=== PATIENT | male | born 1985 | race Caucasian/White ===

== ENCOUNTER → 2019-12-31 09:28 | Outpatient (BNVA) | payer MEDICAID, SELFPAY | PROVIDERS: PCP Internal Medicine; Referring Provider Internal Medicine; Visit Provider Physician Assistant | DX: R12 Heartburn (principal); R11.2 Nausea with vomiting, unspecified; F17.210 Nicotine dependence, cigarettes, uncomplicated | CPT/HCPCS: 99212 ==

== ENCOUNTER 2020-01-08 16:30 | Emergency (ER) | payer MEDICAID, SELFPAY ==
[2020-01-08 16:45] VITALS: BP 150/85; PULSE 72; RESP 16; TEMP 37.2; O2SAT 97; BMI 33.8
--- NOTE | 2020-01-08 17:23 | ED_ITS ---
HPI - General Adult General Chief complaint: General Medical Stated complaint: CONGESTION Time Seen by Provider: 01/08/20 17:23 History of Present Illness HPI narrative: Patient complains of right ear pain, congestion, mild cough, fever earlier in the day which he took Motrin and does not feel feverish now He did go to an urgent care yesterday for same symptoms and started amoxicillin but ear pain is not controlled with Motrin and wants to be rechecked There is no cough no sore throat no shortness of breath no weakness no headache no toothache Related Data Home Medications Medication Instructions Recorded Confirmed omeprazole 20 mg capsule,delayed 20 mg PO BID 12/31/19 12/31/19 release polyethylene glycol 3350 17 17 g PO DAILY 12/31/19 12/31/19 gram/dose oral powder Previous Rx's Medication Instructions Recorded famotidine 40 mg tablet 40 mg PO DAILY #30 tab 12/31/19 pantoprazole 20 mg tablet,delayed 20 mg PO QAM #30 tab 12/31/19 release amoxicillin-pot clavulanate 1 tab PO Q12H 10 Days #20 tab 01/08/20 [Augmentin] oxycodone-acetaminophen [Percocet] 1 - 2 tab PO Q6H PRN #14 tab 01/08/20 Allergies Allergy/AdvReac Type Severity Reaction Status Date / Time olive extract [OLIVE] Allergy Intermediate THROAT Unverified 11/08/19 15:49 SWELLING Penicillins [PENICILLINS] Allergy Intermediate RASH Unverified 11/08/19 15:49 Review of Systems Review of Systems: Positive for ear pain fever runny nose and mild cough There is no headache no stiff neck no toothache no chest pain no shortness of breath no abdominal pain no nausea vomiting diarrhea no leg swelling no rash, no weakness PMFSH Past Medical History Source: nursing notes reviewed Medical History (Updated 01/08/20 @ 17:37 by ENMANUEL Mcknight) Heartburn Overweight Family History Family History (Updated 12/31/19 @ 08:12 by Tiffany Mcpherson PA-C) Father No problems noted. Mother No problems noted. Social History Social History (Updated 12/31/19 @ 08:09 by Tiffany Mcpherson PA-C) Household Members: Children Smoking Status: Current every day smoker Tobacco Type: Cigarette Use of substances other than those prescribed or required for medical reasons: No Advance Directives: No Advance Directives Information Provided: Yes Current occupational status: employed Current occupation: [employer]- Physical Exam Vital Signs: Vital Signs: Last Vital Signs Temp 99 F 01/08/20 16:45 Pulse 72 01/08/20 16:45 Resp 16 01/08/20 16:45 BP 150/85 H 01/08/20 16:45 Pulse Ox 97 01/08/20 16:45 Body Mass Index 33.8 Patient is A&O x3 no acute distress The left ear is normal tympanic membrane, normal canal The right ear has a somewhat obscured tympanic membrane which is red, the canal is open there is no mastoid redness or tenderness, there is no material in the canal Pharynx is clear no redness no exudate no swelling, mucous membranes are moist, voice is normal, uvula is midline There is no dental tenderness or swelling Neck is supple without lymphadenopathy The chest is clear with full equal symmetrical breath sounds the heart rate and rhythm are regular with no murmur The abdomen soft nontender the extremities no rash the neuro no focal deficit, his gait is normal his balance is normal his speech is normal, no facial asymmetry Course Course Course Narrative: Patient has taken a couple of doses of amoxicillin but as he developed a fever today I switched antibiotics to Augmentin for broader coverage COVID testing was done Patient was discharged home and advised to return in 2-3 days if not improved Discharge Plan Discharge Clinical Impression: Otitis media Qualifiers: Otitis media type: unspecified Laterality: right Qualified Code(s): H66.91 - Otitis media, unspecified, right ear Patient Disposition: Home, Self-Care Additional Instructions: We are using a stronger antibiotic as you have not improved on amoxicillin We did a COVID test and the results will be back in 2-3 days and we will call you Return to the ER any time for any worse condition or any concern Follow with primary care physician in 3 days if not better, or return to ER for recheck if not improved [id number] ear drops pain relief drops may be helpful Prescriptions: New amoxicillin-pot clavulanate [Augmentin] 875-125 mg tablet 1 tab PO Q12H 10 Days Qty: 20 RF: 0 oxycodone-acetaminophen [Percocet] 5-325 mg tablet 1 - 2 tab PO Q6H PRN (Reason: pain) Qty: 14 RF: 0 No Action omeprazole 20 mg capsule,delayed release(DR/EC) 20 mg PO BID RF: 0 polyethylene glycol 3350 [Miralax] 17 gram/dose powder 17 g PO DAILY RF: 0 pantoprazole 20 mg tablet,delayed release (DR/EC) 20 mg PO QAM Qty: 30 RF: 6 famotidine 40 mg tablet 40 mg PO DAILY Qty: 30 RF: 5 Stand Alone Forms: Work/School Release Interventions: ED Discharge Assessment Last Done: 01/08/20 18:06 Discharge Date/Time: 01/08/20 18:13
[2020-01-08] MEDS: Amoxicillin/Potassium Clav 875 MG TABLET PO (17:37)
[2020-01-08] MEDS: Ibuprofen 800 MG TABLET PO (17:37)
--- NOTE | 2020-01-08 17:39 | PC.NURSE ---
PT IS STATES HE HAS OUT GROWN PENICILLIN ALLERGY THAT HAPPENED A BABY HE HAS BEEN TAKINF AMOXICILLIN WITH OUT ISSUES.
== END 2020-01-08 18:13 | disposition home or self-care (01) ==
PROVIDERS: Physician Assistant Medical; Emergency Provider Emergency Medicine; PCP Internal Medicine
DX: H66.91 Otitis media, unspecified, right ear (principal); H92.01 Otalgia, right ear; Z79.899 Other long term (current) drug therapy; F17.210 Nicotine dependence, cigarettes, uncomplicated; Z71.6 Tobacco abuse counseling; Z20.828 Contact with and (suspected) exposure to other viral communicable diseases
CPT/HCPCS: 99283; 99284; U0003

== ENCOUNTER 2020-01-23 20:43 | Emergency (ER) | payer MEDICAID, SELFPAY ==
[2020-01-23 21:06] VITALS: BP 131/77; PULSE 96; RESP 16; TEMP 37.1; O2SAT 97; BMI 32.9
[2020-01-23 22:00] VITALS: BP 121/66; PULSE 71; RESP 16; TEMP 37.4; O2SAT 97
[2020-01-23] MEDS: Acetaminophen 325 MG TABLET 975 MG PO (22:41)
[2020-01-23] MEDS: Ibuprofen 400 MG TABLET PO (22:42)
--- NOTE | 2020-01-23 22:42 | ED.URI ---
HPI - URI/Sore Throat General Chief Complaint: Upper Respiratory Symptoms Stated Complaint: FLU LIKE SYMPTOMS Time Seen by Provider: 01/23/20 22:34 Source: patient Mode of arrival: ambulatory Limitations: no limitations History of Present Illness HPI Narrative: This is a 34-year-old male who presents with body aches, sore throat, dry cough , headache, and isolated episode of diarrhea today. 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 Otherwise, patient denies shortness of breath, chest pain / palpitations. Related Data Home Medications Medication Instructions Recorded Confirmed omeprazole 20 mg capsule,delayed 20 mg PO BID 12/31/19 12/31/19 release polyethylene glycol 3350 17 17 g PO DAILY 12/31/19 12/31/19 gram/dose oral powder Previous Rx's Medication Instructions Recorded famotidine 40 mg tablet 40 mg PO DAILY #30 tab 12/31/19 pantoprazole 20 mg tablet,delayed 20 mg PO QAM #30 tab 12/31/19 release amoxicillin-pot clavulanate 1 tab PO Q12H 10 Days #20 tab 01/08/20 [Augmentin] oxycodone-acetaminophen [Percocet] 1 - 2 tab PO Q6H PRN #14 tab 01/08/20 Allergies Allergy/AdvReac Type Severity Reaction Status Date / Time olive extract [OLIVE] Allergy Intermediate THROAT Verified 01/23/20 21:09 SWELLING Penicillins [PENICILLINS] Allergy Intermediate RASH Verified 01/23/20 21:09 Review of Systems Review of Systems: pertinent positives and negatives as stated in HPI 10 point review of systems is otherwise negative. [facility] Past Medical History Source: nursing notes reviewed Medical History Heartburn Overweight Family History Family History Father No problems noted. Mother No problems noted. Social History Social History Household Members: Children Alcohol intake: unknown Smoking Status: Current every day smoker Tobacco Type: Cigarette Smoked in Last 30 Days: No Use of substances other than those prescribed or required for medical reasons: Unknown Advance Directives: No Advance Directives Information Provided: No Current occupational status: employed Current occupation: [employer]- Physical Exam Vital Signs: Vital Signs: Last Vital Signs Temp 99.4 F 01/23/20 22:00 Pulse 71 01/23/20 22:00 Resp 16 01/23/20 22:00 BP 121/66 01/23/20 22:00 Pulse Ox 97 01/23/20 22:00 Body Mass Index 32.9 VITAL SIGNS: Reviewed. GENERAL: Well developed, well nourished, in no acute distress. HEAD: Normocephalic/atraumatic, EYES: PERRLA, EOMI intact without pain, no nystagmus/pallor/icterus noted EARS: Ext canals without abnormality, TMs non-bulging and non-erythematous NOSE: Nares patent bilateral OROPHARYNX: no oral lesions noted, posterior pharynx clear and non-erythematous without noted tonsillar enlargement/erythema/exudates NECK: Supple, no adenopathy LUNGS: Normal breath sounds. No adventitious sounds or accessory muscle use. SpO2<97> CARDIOVASCULAR: Regular rate and rhythm without noted murmurs, no JVD or lower extremity edema. ABDOMEN: Soft, non-tender, non-distended with bowel sounds. No rigidity. No guarding. No palpable masses or hernias noted MUSCULOSKELETAL: No tenderness, deformities, or effusions noted on gross inspection. EXTREMITIES: No cyanosis, clubbing or edema. SKIN: Inspection of the skin reveals no rashes, ulcerations, jaundice, pallor, or petechiae. NEUROLOGIC: Alert and oriented x 4. Strength and sensation to light touch were grossly intact x 4. Course Course Course Narrative: This is a 34-year-old male with history and clinical presentation consistent with positive sick contacts, no flu vaccine, and COVID-19 exposure at his place of employment. Patient will be swabbed for COVID-19 today and was given strict instructions for self quarantine there is no evidence of hypoxia, tachypnea, tachycardia. Discharge Plan Discharge Clinical Impression: Exposure to COVID-19 virus, Viral syndrome Patient Disposition: Home, Self-Care Instructions: Viral Syndrome (ED), COVID-19 (Coronavirus Disease 2019) (ED) Additional Instructions: 1. increase fluid hydration especially with water. 2. Tylenol 1000 mg, orally, every 6 hours as needed for temperatures greater than 100.4 or body aches. Do not exceed 4000 mg within 24 hours. 3. ibuprofen 400 mg, orally with milk or food, every 6 hours as needed for temperatures greater than 100.4 or body aches. 4. your required by the [facility] to self quarantine until you have received the results of your COVID-19 testing that was completed here today. Please follow all [facility] guidelines and recommendations on the website. The patient and/or family acknowledge understanding of results (as applicable), diagnosis, treatment plan, need for follow up, and symptoms that should prompt a return to the emergency room. Prescriptions: No Action amoxicillin-pot clavulanate [Augmentin] 875-125 mg tablet 1 tab PO Q12H 10 Days Qty: 20 RF: 0 oxycodone-acetaminophen [Percocet] 5-325 mg tablet 1 - 2 tab PO Q6H PRN (Reason: pain) Qty: 14 RF: 0 omeprazole 20 mg capsule,delayed release(DR/EC) 20 mg PO BID RF: 0 polyethylene glycol 3350 [Miralax] 17 gram/dose powder 17 g PO DAILY RF: 0 pantoprazole 20 mg tablet,delayed release (DR/EC) 20 mg PO QAM Qty: 30 RF: 6 famotidine 40 mg tablet 40 mg PO DAILY Qty: 30 RF: 5 Referrals: Physician,Unknown [Primary Care Provider] - 2 days
== END 2020-01-23 22:53 | disposition home or self-care (01) ==
PROVIDERS: Emergency Provider Student in an Organized Health Care Education/Training Program
DX: B34.9 Viral infection, unspecified (principal); R05 Cough; M79.10 Myalgia, unspecified site; F17.210 Nicotine dependence, cigarettes, uncomplicated; Z20.828 Contact with and (suspected) exposure to other viral communicable diseases; Z79.899 Other long term (current) drug therapy; Z71.6 Tobacco abuse counseling
CPT/HCPCS: 99283; 99284; U0003

== ENCOUNTER 2020-03-06 08:15 | Outpatient (REF) | payer MEDICAID, SELFPAY ==
--- NOTE | 2020-03-06 08:17 | FL_ITS ---
EXAMINATION: FL BARIUM SWALLOW CLINICAL INFORMATION: Heartburn COMPARISON: None TECHNIQUE: Barium swallow examination is performed using fluoroscopic evaluation in addition to multiple fluoroscopic spot views. The patient is imaged both upright and prone and using both thick and thin sulfate along with effervescent granules. Fluoroscopy time: 1.3 minutes DAP: 7.837 Gycm2 Images: 6 FINDINGS: There is normal apposition of the focal cords while saying E. There is normal elevation of the soft palate while saying candy. Patient swallowed thin and thick barium and half-inch diameter barium tablet without difficulty. No nasopharyngeal reflux or tracheal aspiration identified. No cricopharyngeal hypertrophy or Zenker's diverticulum identified. There is normal esophageal motility without evidence of stricture or ulceration. No mucosal abnormalities appreciated. A nonobstructive Schatzki's ring is present. No gastroesophageal reflux was elicited during the study including with water siphon test. FL/FL barium swallow IMPRESSION: 1. No significant esophageal abnormality appreciated. 2. No gastroesophageal reflux elicited during the study.
== END 2020-03-06 08:16 | disposition home or self-care (01) ==
LOC: HO.XRAY 08:15
PROVIDERS: Visit Provider Physician Assistant
DX: R12 Heartburn (principal)
CPT/HCPCS: 74220

== ENCOUNTER → 2021-03-03 08:43 | Outpatient (BNVA) | payer MEDICAID, SELFPAY | PROVIDERS: PCP Nurse Practitioner Primary Care; Visit Provider Urology | DX: Z30.09 Encounter for other general counseling and advice on contraception (principal); F41.8 Other specified anxiety disorders | CPT/HCPCS: 99202 ==

== ENCOUNTER 2021-04-08 10:27 | Emergency (ER) | payer OTHER, MEDICAID, SELFPAY ==
--- NOTE | ~2021-04-08 | XR_ITS ---
EXAMINATION: LEFT FOOT AND LEFT CALCANEUS CLINICAL INFORMATION: Pain when dorsiflexing foot. Injured at work. COMPARISON: None TECHNIQUE: 2 views of the left calcaneus and 3 views of the left foot FINDINGS: There is no evidence of acute fracture or dislocation of the left foot or calcaneus. Boehler's angle does not show flattening. Joint spaces are maintained. There is an Achilles calcaneal spur present. 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 XR/XR calcaneus LT min 2V IMPRESSION: No evidence of acute fracture or dislocation of the left foot or calcaneus.
--- NOTE | ~2021-04-08 | XR_ITS ---
EXAMINATION: LEFT FOOT AND LEFT CALCANEUS CLINICAL INFORMATION: Pain when dorsiflexing foot. Injured at work. COMPARISON: None TECHNIQUE: 2 views of the left calcaneus and 3 views of the left foot FINDINGS: There is no evidence of acute fracture or dislocation of the left foot or calcaneus. Boehler's angle does not show flattening. Joint spaces are maintained. There is an Achilles calcaneal spur present. 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 XR/XR foot LT 2V IMPRESSION: No evidence of acute fracture or dislocation of the left foot or calcaneus.
[2021-04-08 10:38] VITALS: BP 118/74; PULSE 80; RESP 16; TEMP 36.6; O2SAT 97; BMI 34.8
[2021-04-08] MEDS: Acetaminophen 325 MG TABLET 975 MG PO (11:19)
--- NOTE | 2021-04-08 11:48 | ED.LOWEXIN ---
HPI - Extremity Injury (Lower) General Chief Complaint: Extremity Injury, Lower Stated Complaint: ankle injury - work related Time Seen by Provider: 04/08/21 10:42 Source: patient Mode of arrival: wheelchair Limitations: no limitations History of Present Illness HPI Narrative: 36-year-old male who slipped on stairs at work and twisted his left ankle this morning. He can bear weight, but he has a stabbing sensation on his left heel. No numbness or tingling, no radiation of pain Related Data Home Medications Medication Instructions Recorded Confirmed omeprazole 20 mg capsule,delayed 20 mg PO BID 12/31/19 12/31/19 release polyethylene glycol 3350 17 17 g PO DAILY 12/31/19 12/31/19 gram/dose oral powder (Miralax) cetirizine 10 mg tablet 10 mg PO DAILY 03/03/21 nicotine 21 mg/24 hr daily 1 patch TOPICAL DAILY 03/03/21 transdermal patch Previous Rx's Medication Instructions Recorded famotidine 40 mg tablet 40 mg PO DAILY #30 tab 12/31/19 pantoprazole 20 mg tablet,delayed 20 mg PO QAM #30 tab 12/31/19 release amoxicillin 875 mg-potassium 1 tab PO Q12H 10 Days #20 tab 01/08/20 clavulanate 125 mg tablet (Augmentin) oxycodone-acetaminophen 5 mg-325 1 - 2 tab PO Q6H PRN #14 tab 01/08/20 mg tablet (Percocet) acetaminophen 300 mg-codeine 30 mg 1 tab PO Q8H #7 tab 03/03/21 tablet diazepam 2 mg tablet 2 mg PO BID PRN 7 Days #2 tab 03/03/21 Allergies Allergy/AdvReac Type Severity Reaction Status Date / Time olive extract [OLIVE] Allergy Intermediate THROAT Verified 03/03/21 08:47 SWELLING Penicillins [PENICILLINS] Allergy Intermediate RASH Verified 03/03/21 08:47 Review of Systems Constitutional: Constitutional: Denies body ache(s), Denies chills, Denies fatigue, Denies fever(s), Denies headache(s), Denies malaise and Denies weakness Eyes: Eyes: Denies diplopia ENT: Denies vertigo, Denies dizziness, Denies otalgia, Denies headache(s), Denies mouth pain, Denies post nasal drip, Denies sinus pain, Denies sinus pressure, Denies sore throat and Denies throat swelling Cardiovascular: Cardiovascular: Denies chest pain, Denies syncope, Denies leg edema, Denies lightheadedness, Denies Loss of Consciousness, Denies palpitations and Denies dyspnea Respiratory: Respiratory: Denies chest congestion, Denies cough and Denies dyspnea Gastrointestinal: Gastrointestinal: Denies abdominal pain, Denies hematochezia, Denies constipation, Denies diarrhea and Denies vomiting Musculoskeletal: Comments: Left heel pain Neurologic: Denies confusion, Denies vertigo, Denies dizziness, Denies syncope, Denies headache(s) and Denies weakness Psychiatric: Psychiatric: Denies anxiety, Denies confusion and Denies depression Endocrine: Endocrine: Denies fatigue and Denies palpitations Allergic/Immunologic: Allergic/Immunologic: Denies throat swelling PMFSH Past Medical History Medical History Heartburn Overweight Family History Family History Father No problems noted. Mother No problems noted. Social History Social History Household Members: Children Alcohol intake: unknown Advance Directives: No Advance Directives Information Provided: No Current occupational status: employed Current occupation: [employer]- Physical Exam Vital Signs: Vital Signs: Last Vital Signs Temp 97.8 F 04/08/21 10:38 Pulse 80 04/08/21 10:38 Resp 16 04/08/21 10:38 BP 118/74 04/08/21 10:38 Pulse Ox 97 04/08/21 10:38 BMI result Body Mass Index 34.8 Const: General: No confusion Nutritional Appearance: well nourished Orientation/consciousness: No confusion Limitations: no limitations HENMT: Head: Yes normal to inspection, Yes normocephalic and Yes atraumatic Ears: hearing grossly normal bilaterally, external ears normal, TM's normal bilaterally and EAC's normal General nose exam: Normal external nose present Face and sinus: Yes normal facial exam and Yes sinuses nontender Mouth: Normal oral and palatal mucosa present Throat: Yes posterior oropharynx normal Eyes: Conjunctivae: conjunctivae normal Pupils: Equal, round and reactive pupils present EOM: EOMs intact bilaterally Neck: Neck: Yes full ROM, Yes no lymphadenopathy and Yes supple Resp: Effort & Inspection: normal respiratory effort and able to speak in complete sentences Auscultation: clear to auscultation bilaterally, no crackles, no rales, no rhonchi and no wheezes Cardio: Rate: regular rate Rhythm: regular rhythm Heart sounds: S1 normal heart sound present and S2 normal heart sound present GI: Inspection: Yes normal to inspection Palpation (GI): Soft to palpation, nontender, no guarding and not rigid Percussion: Yes normal to percussion Auscultation: normal bowel sounds Skin: General skin exam: no rashes or lesions noted Neuro: General: No confusion Cranial nerves: Yes Equal, round and reactive pupils present Extrem: Left lower extremity: normal to inspection, full ROM, normal capillary refill, ankle Details: normal to inspection and normal ROM; Negative for no tenderness, no swelling and edema and foot Details: normal capillary refill, normal to inspection and tenderness Location: of the calcaneus Details: with squeeze; No no cyanosis and no edema Psych: Appearance: grossly normal Affect: normal affect Attitude: cooperative Thought process: Normal thought process present Course Course Course Narrative: 36-year-old male slipped and injured left heel at work. 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 X-ray is negative. Gait walking boot and crutches. Counseled patient to rest, ice, elevate, and wear boot as needed. Counseled if patient is not better in 1 week, to return or see PCP, and he will be referred to orthopedics then. 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 Patient verbalized agreement and understanding plan. FINDINGS: There is no evidence of acute fracture or dislocation of the left foot or calcaneus. Boehler's angle does not show flattening. Joint spaces are maintained. There is an Achilles calcaneal spur present. 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 XR/XR foot LT 2V IMPRESSION: No evidence of acute fracture or dislocation of the left foot or calcaneus.? Discharge Plan Discharge Clinical Impression: Pain of left heel Patient Disposition: Home, Self-Care Instructions: Crutch Instructions (ED), R.I.C.E. Treatment (ED), Walking Boot (ED) Additional Instructions: Please alternate Tylenol and ibuprofen for pain. Take 1 or the other every 4 hours. For example, at midnight take 1000 mg of Tylenol, then at 4:00 a.m. take 800 mg ibuprofen, at 8:00 a.m. take 1000 mg of Tylenol, at noon take 800 mg of ibuprofen, at 4:00 p.m. take 1000 mg of Tylenol, at 8:00 p.m. take 800 mg of ibuprofen. Do not exceed 3000 mg of Tylenol in 24 hours. This method is proven to be as effective as an opioid for pain control. Please use your walking boot and crutches. Please bear weight as you can tolerate. Please return to be seen in 1 week if your pain is not resolving and at that point we will refer you to orthopedics. You do not have a fracture by x-ray here today. Prescriptions: No Action amoxicillin-pot clavulanate [Augmentin] 875-125 mg tablet 1 tab PO Q12H 10 Days Qty: 20 0RF oxycodone-acetaminophen [Percocet] 5-325 mg tablet 1 - 2 tab PO Q6H PRN (Reason: pain) Qty: 14 0RF omeprazole 20 mg capsule,delayed release(DR/EC) 20 mg PO BID 0RF polyethylene glycol 3350 [Miralax] 17 gram/dose powder 17 g PO DAILY 0RF pantoprazole 20 mg tablet,delayed release (DR/EC) 20 mg PO QAM Qty: 30 6RF famotidine 40 mg tablet 40 mg PO DAILY Qty: 30 5RF nicotine 21 mg/24 hr patch 24 hour 1 patch topical DAILY 0RF cetirizine 10 mg tablet 10 mg PO DAILY 0RF diazepam 2 mg tablet 2 mg PO BID PRN (Reason: anxiety) 7 Days Qty: 2 0RF Rx Instructions: Take medication after arrival at office acetaminophen-codeine 300-30 mg tablet 1 tab PO Q8H Qty: 7 0RF Stand Alone Forms: Work/School Release
== END 2021-04-08 12:41 | disposition home or self-care (01) ==
PROVIDERS: Emergency Provider Emergency Medicine; PCP Nurse Practitioner Primary Care
DX: Z04.2 Encounter for examination and observation following work accident (principal); M79.672 Pain in left foot
CPT/HCPCS: 73620; 73650; 99283; 99284

== ENCOUNTER → 2021-06-10 10:53 | Outpatient (BNVA) | payer MEDICAID, SELFPAY | PROVIDERS: PCP Nurse Practitioner Primary Care; Visit Provider Urology | DX: Z30.2 Encounter for sterilization (principal); F41.8 Other specified anxiety disorders | CPT/HCPCS: 55250 ==

== ENCOUNTER 2023-06-21 11:47 | Outpatient (REF) | payer MEDICAID, SELFPAY ==
[2023-06-21 13:11] LABS: MANUAL DIFF FLAG NO
[2023-06-21 13:32] LABS: Basophils Absolute Auto 0.1 X10*3/uL (0.0-0.2); Basophils Percent Auto 0.7 % (0-2); Eosinophils Absolute Auto 0.2 X10*3/uL (0.0-0.4); Hematocrit 43.8 % (42.0-52.0); Hemoglobin 14.8 g/dl (14.0-18.0); Imm Gran Abs Auto 0.02 X10*3/uL (0.00-0.03); Imm Gran Pct Auto 0.3 % (0.0-0.4); Lymphocytes Percent Auto 40.2 % (20-40); Mean Corpuscular HGB Conc 33.8 g/dl (31.0-36.0); Mean Corpuscular Hemoglobin 31.5 pg (27.0-33.0); Mean Corpuscular Volume 93.2 fL (80.0-98.0); Mean Platelet Volume 10.3 fL (9.4-12.4); Monocytes Absolute Auto 0.8 X10*3/uL (0.1-1.2); Monocytes Percent Auto 9.9 % (2-11); Neutrophils Absolute Auto 3.5 x10*3/uL (2.0-8.3); Neutrophils Percent Auto 45.9 % (45-73); Platelet Count 357 X10*3/uL (160-400); Red Cell Distribution Width 12.6 % (11.0-16.0); White Blood Count 7.6 X10*3/uL (4.8-10.8)
[2023-06-21 14:02] LABS: Alanine Aminotransferase 47 U/L (0-40); Albumin Level 4.3 g/dL (3.5-5.0); Alkaline Phosphatase 92 U/L (39-117); Anion Gap 11 (12-20); Aspartate Amino Transferase 50 U/L (5-37); Bilirubin Total 0.5 mg/dL (0.0-1.0); Blood Urea Nitrogen 16 mg/dL (9-16); Calcium 9.7 mg/dL (8.4-10.2); Carbon Dioxide 26 mmol/L (22-29); Chloride 107 mmol/L (96-108); Estimated Glomerular Filt Rate > 60; Glucose Random 95 mg/dL (60-115); Potassium 4.2 mmol/L (3.3-5.1); Sodium 140 mmol/L (135-145); Total Protein 7.8 g/dL (6.5-8.0)
[2023-06-21 14:10] LABS: TSH reflex Free T4 1.89 uIU/mL (0.32-4.0)
[2023-06-21 15:45] LABS: Estimated Average Glucose 120 mg/dL; Hemoglobin A1c % 5.8 % (<6.0)
[2023-06-25 14:13] LABS: Testosterone, Free 42.3 pg/mL (35.0-155.0); Testosterone, Total 149 ng/dL (250-1100)
== END 2023-06-21 11:48 | disposition home or self-care (01) ==
LOC: HO.HHCL 11:47
PROVIDERS: Visit Provider Nurse Practitioner Primary Care
DX: R63.5 Abnormal weight gain (principal); R91.8 Other nonspecific abnormal finding of lung field; Z87.891 Personal history of nicotine dependence
CPT/HCPCS: 36415; 80053; 83036; 84402; 84403; 84443; 85025

== ENCOUNTER 2023-06-30 08:01 | Outpatient (REF) | payer MEDICAID, SELFPAY ==
[2023-06-30 08:45] LABS: Cholesterol 173 mg/dL (<200); HDL Cholesterol 29 mg/dL (>40); LDL Cholesterol Calculated 100 mg/dL (<100); Triglycerides 221 mg/dL (<150)
[2023-07-01 15:43] LABS: Follicle Stimulating Hormone 5.6 mIU/mL (1.4-12.8); Lutenizing Hormone 4.4 mIU/mL (1.5-9.3)
[2023-07-05 12:09] LABS: Testosterone, Free 36.3 pg/mL (35.0-155.0); Testosterone, Total 153 ng/dL (250-1100)
== END 2023-06-30 08:02 | disposition home or self-care (01) ==
LOC: HO.LAB 08:01
PROVIDERS: Visit Provider Nurse Practitioner Primary Care
DX: Z13.220 Encounter for screening for lipoid disorders (principal); R79.89 Other specified abnormal findings of blood chemistry
CPT/HCPCS: 36415; 80061; 83001; 83002; 84402; 84403

== ENCOUNTER 2023-07-11 08:05 | Outpatient (REF) | payer MEDICAID, SELFPAY ==
[2023-07-11 09:51] LABS: Iron 120 mcg/dL (45-160); Percent Iron Saturation 40 % (15-50); Total Iron Binding Capacity 298 mcg/dL (228-428); Unsaturated Iron Binding 178 ug/dL
[2023-07-11 10:07] LABS: Ferritin 293 ng/mL (20-250)
[2023-07-11 10:35] LABS: Cortisol Random 12.5 ug/dL
[2023-07-12 14:54] LABS: Transferrin 269 mg/dL (188-341)
[2023-07-13 09:02] LABS: Lutenizing Hormone 4.3 mIU/mL (1.5-9.3); Prolactin 9.9 ng/mL (2.0-18.0); Sex Hormone Binding Globulin 10 nmol/L (10-50)
[2023-07-18 01:42] LABS: Estradiol Ultra Sensitive 21 pg/mL (< OR = 29)
[2023-07-22 10:39] LABS: Testosterone, Total 122 ng/dL (250-1100)
== END 2023-07-11 08:06 | disposition home or self-care (01) ==
LOC: HO.LAB 08:05
PROVIDERS: PCP Nurse Practitioner Primary Care; Visit Provider Nurse Practitioner Primary Care
DX: R79.89 Other specified abnormal findings of blood chemistry (principal)
CPT/HCPCS: 36415; 82533; 82670; 82728; 83001; 83002; 83540; 84146; 84270; 84402; 84403; 84466

== ENCOUNTER 2024-05-03 18:45 | Emergency (ER) | payer OTHER, SELFPAY ==
--- NOTE | ~2024-05-03 | XR_ITS ---
CLINICAL HISTORY: CP 2 views chest Comparison: CR - CHEST 1 VIEW [id number] - 09/04/15 11:26 EDT Findings: Cardiac and mediastinal contours are normal. Mild interstitial prominence with scattered peribronchial thickening. No focal consolidation. No effusion. No pneumothorax. No acute osseous finding. Impression: Mild interstitial prominence with scattered peribronchial thickening. No focal consolidation. This document has been electronically signed by: Eh Ibanez MD on 05/03/2024 20:13:33
--- NOTE | 2024-05-03 18:46 | ECG_ITS ---
Test Reason : CHEST PAIN Blood Pressure : */* mmHG Vent. Rate : 80 BPM Atrial Rate : 80 BPM P-R Int : 138 ms QRS Dur : 86 ms QT Int : 370 ms P-R-T Axes : 25 7 0 degrees QTcB Int : 426 ms Normal sinus rhythm Nonspecific T wave abnormality Abnormal ECG When compared with ECG of 29-Aug-2017 21:40, No significant change was found Referred By: Generic ED Physician Electronically Signed By: NORA DYKES
[2024-05-03 19:31] VITALS: BP 106/76; PULSE 86; RESP 18; TEMP 36.4; O2SAT 97; BMI 37.2
--- NOTE | 2024-05-03 19:31 | ED.CHESTPAIN ---
HPI - Chest Pain General Chief Complaint: Chest Pain Stated Complaint: CP Time Seen by Provider: 05/03/24 21:47 Source: patient Mode of arrival: ambulatory Limitations: no limitations History of Present Illness ED Provider: Dr. Codi James HPI narrative: Patient comes to the emergency room complaining of left-sided chest pain. Patient states that the 1st time that he had chest pain, he was walking, started feeling sharp pain that lasted for a few minutes and self-resolved. This happened 7 hours ago. Then, patient states that he was watching TV and had another sharp pain lasting a few seconds on the left side of the chest and went away. Patient denies any shortness of breath. In triage, patient stated that he has continuous pressure. However, patient denies having any pain or pressure at this time. Patient denies any radiation to the neck or upper extremities. patient states that this time he is asymptomatic. Patient took 650 mg of aspirin approximately 6 hours ago. Patient denies any syncope or near syncopal episodes. Denies any past medical history. Related Data Home Medications ?Medication ?Instructions ?Recorded ?Confirmed omeprazole 20 mg capsule,delayed 20 mg PO BID 12/31/19 12/31/19 release polyethylene glycol 3350 17 17 g PO DAILY 12/31/19 12/31/19 gram/dose oral powder (Miralax) cetirizine 10 mg tablet 10 mg PO DAILY 03/03/21 nicotine 21 mg/24 hr daily 1 patch topical DAILY 03/03/21 transdermal patch Previous Rx's ?Medication ?Instructions ?Recorded famotidine 40 mg tablet 40 mg PO DAILY #30 tabs 12/31/19 pantoprazole 20 mg tablet,delayed 20 mg PO QAM #30 tabs 12/31/19 release amoxicillin 875 mg-potassium 1 tab PO Q12H 10 days #20 tabs 01/08/20 clavulanate 125 mg tablet (Augmentin) oxycodone-acetaminophen 5 mg-325 1 - 2 tab PO Q6H PRN pain #14 tabs 01/08/20 mg tablet (Percocet) acetaminophen 300 mg-codeine 30 mg 1 tab PO Q8H #7 tabs 03/03/21 tablet diazepam 2 mg tablet 2 mg PO BID PRN anxiety 7 days #2 03/03/21 tabs sulfamethoxazole 800 1 tab PO BID 3 days #6 tabs 06/16/21 mg-trimethoprim 160 mg tablet (Bactrim DS) Allergies Allergy/AdvReac Type Severity Reaction Status Date / Time olive extract [OLIVE] Allergy Intermediate THROAT Verified 05/03/24 19:32 SWELLING Penicillins [PENICILLINS] Allergy Intermediate RASH Verified 05/03/24 19:32 Review of Systems Review of Systems: Constitutional : No Weight loss, No Fever, No Chills, No Night Sweats, No Fatigue, No Malaise ENT/Mouth : No Hearing loss, No Ear Pain, No Nasal Congestion, No Sinus Pain, No Hoarseness, No sore throat, No Rhinorrhea, No Swallowing Difficulty Eyes: No Eye Pain, No Swelling, No Redness, No Foreign Body, No Discharge, No Vision Changes Cardiovascular : Complaining of few seconds of sharp left-sided Chest Pain, No SOB, No Dyspnea on Exertion, No Orthopnea, No Edema, No Palpitations Respiratory : No Cough, No Sputum, No Wheezing, No Smoke Exposure, No Dyspnea Gastrointestinal : No Nausea, No Vomiting, No Diarrhea, No Constipation, No abdominal Pain, No Hematochezia, No Melena Genitourinary : no irregular bleeding, No Dysuria, No Urinary Frequency, No Hematuria, No Urinary Incontinence, No Urgency, No Flank Pain, No Urinary Flow Changes, No Hesitancy Musculoskeletal : No joint pain, No Myalgias, No Joint Swelling Skin : No Skin Lesions, No rash Neuro : No Weakness, No Numbness, No Paresthesias, No Loss of Consciousness, No Dizziness, No Headache Psych : No Anxiety/Panic, No Depression, No SI/HI/AH/VH, No Social Issues, Heme/Lymph: No Bruising, No Bleeding,No Lymphadenopathy Endocrine : No Polyuria, No Polydipsia, No Temperature Intolerance [facility] Past Medical History Medical History Overweight Heartburn Family History Family History Father No problems noted. Mother No problems noted. 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 Oriented X3. No acute distress. Eyes: Pupils equal, round and reactive to light. ENT: Pharynx normal. Neck: Normal inspection. Neck supple. No lymph nodes noted. No crepitus CVS: Normal heart rate and rhythm. Pulses normal. Normal S1 and S2. Patient does have reproducible chest pain to palpation on the left side of the chest. Patient states that with palpation it does feel sharp. Respiratory: No respiratory distress. Breath sounds normal. No Wheezing. No rales Abdomen: Soft and nontender. No rigidity. No distention. Skin: Skin warm and dry. Normal skin color. Normal skin turgor. Extremities: No lower extremity edema. No Lacerations. No Rash Neuro: Oriented X 3. No motor deficit. No sensory deficit. Moving all extremities. No slurred speech. CN 2 through 12 grossly intact Psych: calm, cooperative, normal affect Course Course Course Narrative: This is an RME: Additional HPI, ROS, PE not included below will be deferred to primary provider. RME assessment and note performed by: Galina Buckley PA-C This is a [id number]-male with no medical problems, who presents emergency department with of left-sided chest pain. Pain is intermittent, lasts for typically a minute at a time. patient states that he took aspirin earlier. Plan: labs, EKG, chest x-ray, further ER evaluation needed. Medical Decision Making Medical Decision Making [facility] Narrative: On physical exam, patient had reproducible Sharp chest pain to palpation. my interpretation of labs: No significant abnormality in patient's hematology, normal coagulation times, negative D-dimer, normal chemistry, normal magnesium, troponin x2 negative, BNP negative chest x-ray: No focal consolidation EKG 1.: Sinus rhythm, heart rate 80, no ST segment depression or elevation, nonspecific T-wave inversion 93, QTC 426 EKG 2: Normal sinus rhythm, heart rate 68, no ST segment depression or elevation, nonspecific T-wave inversion lead 3, QTC 450. patient was ambulated around the emergency room several times at fast steady pace. Patient did not have any symptoms, no chest pain or shortness of breath, vitals stable. Patient is asymptomatic. Patient will follow-up with his PCP, patient may need to be referred to cardiology for a stress test. At this time, patient being discharged in stable condition and asymptomatic Differential Diagnosis Differential Diagnoses: The differential diagnosis associated with the presentation includes ( ACS, stable angina, costochondritis, musculoskeletal pain) Lab Data MDM Lab Attestation statement: I reviewed the patient's lab results. 05/03/24 19:48 05/03/24 19:48 Labs: Lab Results 05/03/24 05/03/24 Range/Units 19:48 22:10 WBC 10.4 (4.8-10.8) X10*3/uL RBC 4.66 (4.60-5.80) X10*6/uL Hgb 14.9 (14.0-18.0) g/dl Hct 41.8 L (42.0-52.0) % MCV 89.7 (80.0-98.0) fL MCH 32.0 (27.0-33.0) pg MCHC 35.6 (31.0-36.0) g/dl RDW 12.8 (11.0-16.0) % Plt Count 343 (160-400) X10*3/uL MPV 9.5 (9.4-12.4) fL Immature Gran % (Auto) 0.4 (0.0-0.4) % Neut % (Auto) 52.8 (45-73) % Lymph % (Auto) 35.7 (20-40) % Bent % (Auto) 8.0 (2-11) % Eos % (Auto) 2.5 (0-4) % Baso % (Auto) 0.6 (0-2) % Lymph # (Auto) 3.7 (1.2-4.9) X10*3/uL Bent # (Auto) 0.8 (0.1-1.2) X10*3/uL Eos # (Auto) 0.3 (0.0-0.4) X10*3/uL Baso # (Auto) 0.1 (0.0-0.2) X10*3/uL Abs Immat Gran (auto) 0.04 H (0.00-0.03) X10*3/uL Absolute Neuts (auto) 5.5 (2.0-8.3) x10*3/uL Absolute Nucleated RBC 0.000 (0.0-0.012) X10*3/uL Nucleated RBC % (auto) 0.0 (0.0-0.2) /100WBC PT 11.4 (10.9-12.4) SEC INR 1.0 (0.9-1.1) D-Dimer High Sensitivty < 150 NG/ML Sodium 139 (135-145) mmol/L Potassium 4.0 (3.3-5.1) mmol/L Chloride 108 (96-108) mmol/L Carbon Dioxide 19 L (22-29) mmol/L Anion Gap 16 (12-20) BUN 20 H (9-16) mg/dL Creatinine 0.79 (0.5-1.4) mg/dL Estim Creat Clear Calc 164.5 Estimated GFR > 60 Random Glucose 103 (60-115) mg/dL Calcium 9.1 D (8.4-10.2) mg/dL Magnesium 2.0 (1.6-2.6) mg/dL Total Bilirubin 0.5 (0.0-1.0) mg/dL Direct Bilirubin 0.1 (0.0-0.5) mg/dL AST 48 H (5-37) U/L ALT 50 H (0-40) U/L Alkaline Phosphatase 130 H (39-117) U/L Troponin I High Sens < 2.7 < 2.7 (<3.5-35.0) ng/L B-Natriuretic Peptide < 10 (<100) pg/mL Total Protein 7.9 (6.5-8.0) g/dL Albumin 4.3 (3.5-5.0) g/dL Lipase 21 (8-78) U/L Independent Interpretation I performed an independent interpretation of an: EKG and Plain X-Ray Radiology Impression Discussion of test interpretation with radiology: I have reviewed the radiologist's reading. Radiologist Impression: Cardiac and mediastinal contours are normal. Mild interstitial prominence with scattered peribronchial thickening. No focal consolidation. No effusion. No pneumothorax. No acute osseous finding. Impression: Mild interstitial prominence with scattered peribronchial thickening. No focal consolidation. Discharge Plan Discharge Clinical Impression: Atypical chest pain Patient Disposition: Home, Self-Care Instructions: Chest Pain (ED), Chest Wall Pain (ED) Additional Instructions: Please follow-up with your primary care physician tomorrow. If you have any worsening or new symptoms, please return to the emergency room or call 911 Prescriptions: No Action sulfamethoxazole-trimethoprim [Bactrim DS] 800-160 mg tablet 1 tab PO BID 3 Days Qty: 6 0RF amoxicillin-pot clavulanate [Augmentin] 875-125 mg tablet 1 tab PO Q12H 10 Days Qty: 20 0RF oxycodone-acetaminophen [Percocet] 5-325 mg tablet 1 - 2 tab PO Q6H PRN (Reason: pain) Qty: 14 0RF omeprazole 20 mg capsule,delayed release(DR/EC) 20 mg PO BID polyethylene glycol 3350 [Miralax] 17 gram/dose powder 17 g PO DAILY pantoprazole 20 mg tablet,delayed release (DR/EC) 20 mg PO QAM Qty: 30 6RF famotidine 40 mg tablet 40 mg PO DAILY Qty: 30 5RF nicotine 21 mg/24 hr patch 24 hour 1 patch topical DAILY cetirizine 10 mg tablet 10 mg PO DAILY diazepam 2 mg tablet 2 mg PO BID PRN (Reason: anxiety) 7 Days Qty: 2 0RF Rx Instructions: Take medication after arrival at office acetaminophen-codeine 300-30 mg tablet 1 tab PO Q8H Qty: 7 0RF lidocaine (PF) 10 mg/mL (1 %) solution 2 ml Infiltration ONCE Qty: 2 0RF Referrals: Audi Townsend MD [Physician] - 1 week Interventions: ED Discharge Assessment Last Done: 05/03/24 23:47 Discharge Date/Time: 05/03/24 23:47 Print Language: Wolof
[2024-05-03 19:54] LABS: Basophils Absolute Auto 0.1 X10*3/uL (0.0-0.2); Basophils Percent Auto 0.6 % (0-2); Eosinophils Absolute Auto 0.3 X10*3/uL (0.0-0.4); Eosinophils Percent Auto 2.5 % (0-4); Hematocrit 41.8 % (42.0-52.0); Hemoglobin 14.9 g/dl (14.0-18.0); Imm Gran Abs Auto 0.04 X10*3/uL (0.00-0.03); Imm Gran Pct Auto 0.4 % (0.0-0.4); Lymphocytes Absolute Auto 3.7 X10*3/uL (1.2-4.9); Lymphocytes Percent Auto 35.7 % (20-40); MANUAL DIFF FLAG NO; Mean Corpuscular HGB Conc 35.6 g/dl (31.0-36.0); Mean Corpuscular Volume 89.7 fL (80.0-98.0); Mean Platelet Volume 9.5 fL (9.4-12.4); Monocytes Absolute Auto 0.8 X10*3/uL (0.1-1.2); Neutrophils Absolute Auto 5.5 x10*3/uL (2.0-8.3); Neutrophils Percent Auto 52.8 % (45-73); Platelet Count 343 X10*3/uL (160-400); Red Blood Count 4.66 X10*6/uL (4.60-5.80); Red Cell Distribution Width 12.8 % (11.0-16.0); White Blood Count 10.4 X10*3/uL (4.8-10.8)
--- OUTSIDE RECORDS SUMMARY | 2024-05-03 20:11 | XMS_ITS | Encounter Summary ---
Author Organization [employer] Address [address] [facility] 7[address] [place] [address] Care Team Providers Care Work Force Advisor Name Role Phone Daisy Keating Primary Care Provider Reason for Visit * Reason Onset Date Comments Med Refill 07/14/2023 Encounter Details Date Type Department Care Team (Late st Contact Info) Description 07/14/2023 Refill [facility] MEDICINE [address] [place], [place] [phone] Daisy Keating ANP [address] [place] [address] BMI 39.0-39.9,adult; Obesity (BMI 30-39.9) Social History Tobacco Use Types Packs/Day Years Used Date Smoking Tobacco: Never Smokeless Tobacco: Never Depression Answer Date Recorded Patient Health Questionnaire-9 Score 18 06/21/2023 Patient Health Questionnaire-9 Score 18 06/21/2023 Last PHQ-9: Questionnaire Data Not on file 0 06/21/2023 Housing Stability Answer Date Recorded What is your housing situation today? I have bradley govea 06/14/[address] you li ve. Do you have problems with any of the following? None of the above 06/14/2023 Food Insecurity Answer Date Recorded Within the past 12 months, y ou worried that your food would run out before you got money to buy more: Never True 06/14/2023 Within the past 12 months,th e food you bought just didn't last and you didn't have enough money to get more: Never True Transportation Answer Date Recorded In the past 12 months, has l ack of transportation kept you from medical appts, meetings, work or from getting things needed for daily living? No 06/14/2023 Utilities Answer Date Recorded In the past 12 months, has t he electric, gas, oil or water company threatened to shut off services in your home? No 06/14/2023 Depression Answer Date Recorded Patient Health Questionnaire-2 Score 6 06/21/2023 Sex and Gender Information Value Date Recorded Sex Assigned at Male 12/21/2021 10:16 AM EDT Legal Sex Male 10:16 AM EDT Gender Identity Male 12/21/2021 10:16 AM EDT Sexual Orientation Straight 12/21/2021 10 :16 AM EDT documented as of this encounter Plan of Treatment Not on file documented as of this encounter Visit Diagnoses Diagnosis BMI 39.0-39.9,adult Obesity (BMI 30-39.9) documented in this encounter Additional Health Concerns Assessment Noted Time PHQ-9 Depression Total Score: 18 024 10:54 AM EDT documented as of this encounter Care Teams Work Force Advisor Relationship Specialty Start Date End Date Daisy Keating ANP [address] [place] [phone] PCP - General Family Medicine 02/28/20 documented as of this encounter
--- OUTSIDE RECORDS SUMMARY | 2024-05-03 20:11 | XMS_ITS | Encounter Summary ---
Author Organization [employer] Address [address] [facility] 7t [place] [address] Care Team Providers Care Legal Paraprofessional Name Role Phone Daisy Keating Primary Care Provider [phone] Reason for Visit * Reason Onset Date Comments Med Refill 11/14/2023 Encounter Details Date Type Department Care Team (Late st Contact Info) Description 11/14/2023 Refill [facility] MEDICINE [address] [place], [place] [phone] Daisy Keating ANP [address] [place] [address] Witnessed apneic spells Social History Tobacco Use Types Packs/Day Years [...] Recorded Patient Health Questionnaire-2 Score 6 06/21/2023 Internet Access Answer Date Recorded Internet Access Q1 Yes 10/24/2023 Internet Access Q2 Not on file 10/24/2023 Sex and Gender Information Value Date Recorded Sex Assigned at Male 12/21/2021 10:16 AM EDT Legal Sex Male 10:16 AM EDT Gender Identity Male 12/21/2021 10:16 AM EDT Sexual Orientation Straight 12/21/2021 10 :16 AM EDT documented as of this encounter Plan of Treatment Not on file documented as of this encounter Visit Diagnoses Diagnosis Witnessed apneic spells documented in this encounter Additional Health Concerns Assessment Noted Time PHQ-9 Depression Total Score: 18 024 10:54 AM EDT documented as of this encounter Care Teams Legal Paraprofessional Relationship Specialty Start Date End Date Daisy Keating ANP [address] [place] [phone] PCP - General Family Medicine 02/28/20 documented as of this encounter
--- OUTSIDE RECORDS SUMMARY | 2024-05-03 20:11 | XMS_ITS | Clinical Summary ---
Author Organization [employer] Address [address] [facility] 7[address] [place] [address] Care Team Providers Care Dietetics Director Name Role Phone Daisy Keating Primary Care Provider [phone] Allergies No known active allergies Medications Semaglutide-Weig ht Management (Wegovy) 0.5 MG/0.5ML solution auto-injectorInd ications:BMI 39.0-39.9,adult, Obesity (BMI 30-39.9) INJECT 0.5MG UNDER THE SKIN ONCE A WEEK 2 mL 2 07/22/2023 Active famotidine (Pepcid) 20 MG tabletIndication s:Gastroesophage al reflux disease, unspecified whether esophagitis present TAKE 1 TABLET TWICE DAILY NEEDED FOR ACID REFLUX MAY TAKE INSTEAD 2 TABS ONCE DAILY 180 tablet 12/19/2023 Active esomeprazole (NexIUM) [address] capsuleIndicatio ns:Witnessed apneic spells TAKE 1 CAPSULE BY MOUTH EVERY DAY DO NOT OPEN CAPSULE 90 capsule 1 02/10/2024 Active Active Problems Problem Noted Date Diagnosed Date Tobacco dependence syndrome 05/06/2022 Generalized anxiety disorder 05/06/2022 Sprain of left ankle 04/15/2021 Resolved Problems Problem Noted Date Diagnosed Date Resolved Date Strep pharyngitis 05/06/2022 06/28/2023 Overview (05/06/2022): -rapid strep positive -amoxicillin 500mg bid for 10 days -droplet precautions discussed -supportive care discussed -ER precautions given Assessment & Plan (05/06/2022 10:46 AM EDT): -rapid strep positive -amoxicillin 500mg bid for 10 days -droplet precautions discussed -supportive care discussed -ER precautions given Encounters Date Type Department Care Team Description 04/24/2024 Telephone [facility] [place] [address] Daisy Keating ANP July recall 04/11/2024 Telephone [facility] [address] [facility] [place] [address] Gildardo CaputocyJENNIE JUNE RECALL (Spoke to pt who stated he will not be around june,will put on recall for July p.e.) 02/10/2024 Refill [facility] [address] [place] [address] Daisy Keating ANP Witnessed apneic spells from Last 3 Months Immunizations Name Administration Dates Next Due Influenza injectable quadrivalent preservative f ree 11/18/2020 Tdap 07/06/2021,11/04/2020 Family History Medical History Relation Name Comments Diabetes Other hepatic steatosis Other Relation Name Status Comments Other Social History Tobacco Use Types Packs/Day Years Used Date Smoking Tobacco: Never Smokeless Tobacco: Never Tobacco Cessation:Counseling Given: Not Answered Depression Answer Date Recorded Patient Health Questionnaire-9 [...] Orientation Straight 12/21/2021 10 :16 AM EDT Last Filed Vital Signs Vital Sign Reading Time Taken Comments Blood Pressure 135/84 09/15/2023 2:12 PM EDT Pulse 101 09/15/2023 2:12 PM EDT Temperature 36.7 ??C (98 ??F) 09/15/2023 2:12 PM EDT Respiratory Rate 20 09/15/2023 2:12 PM EDT Oxygen Saturation 98% 09/15/2023 2:12 PM EDT Inhaled Oxygen Concentration - - Weight 120 kg (265 lb 9.6 oz) 09/15/2023 2:12 PM EDT Height 177.8 cm (5' 10 ) 09/15/2023 2:12 PM EDT Body Mass Index 38.11 09/15/2023 2:12 PM EDT Plan of Treatment Health Maintenance Due Date Last Done Comments HIV Screening 1984 Alcohol/Substance Use Screening 1996 Family Planning (PISQ) 1999 Hepatitis C Screening 2002 Hepatitis B Vaccines (1 of 3 - 19+ 3-dose series) 2003 COVID-19 Vaccine (2023-2 5 season) 2023 06/27/2020, 05/30/2020 Influenza Vaccine (#1) 2023 11/18/2020 Depression Monitoring (PHQ-9) 12/21/2023, 06/21/2023 SDOH Screening 06/13/2024 06/14/2023 Depression Screening 06/20/2024 06/21/2023, 06/21/2023 Diabetes: Hemoglobin A1C 06/20/2024 06/21/2023 Tobacco Screening 09/14/2024 09/15/2023 Lipid Panel 06/29/2028 06/30/2023 DTaP/Tdap/Td Vaccines (3 - T d or Tdap) 07/07/2031 07/06/2021, 11/04/2020 Zoster Vaccines (1 of 2) 2034 RSV Patients and Patients Aged 60 years or older (1 - 1-dose 75+ series) 2059 HIB Vaccines Aged Out No longer eligi ble based on patient's age to complete this topic HPV Vaccines Aged Out No longer eligi ble based on patient's age to complete this topic Hepatitis A Vaccines Aged Out No long er eligible based on patient's age to complete this topic IPV Vaccines Aged Out No longer eligi ble based on patient's age to complete this topic Meningococcal Vaccine Aged Out No karo aly eligible based on patient's age to complete this topic Pneumococcal Vaccine: Pediatrics (0 to 5 Years) and At-Risk Patients (6 to 49) Years) Aged Out No longer eligible b ased on patient's age to complete this topic RSV under 20 months Aged Out No longe r eligible based on patient's age to complete this topic Rotavirus Vaccines Aged Out No longer eligible based on patient's age to complete this topic Procedures Procedure Name Priority Date/Time Associated Diagnosis Comments LIPID PANEL, STANDARD Routine 06/30/2023 8:09 AM EDT Lipid screening HEMOGLOBIN A1C Routine 06/21/2023 11:49 AM EDT Weight gain from Last 3 Months or Most Recently Relevant to Health Maintenance Results * (ABNORMAL) Lipid Panel, Standard (06/30/2023 8:09 AM EDT) Triglycerides 221(H) <150 mg/dL [facility] Comment:Desirable Triglyceri de: less than 150 mg/dLBorderline High Triglyceride 150-199 mg/dLHigh Triglyceride: 200-499 mg/dLVery High Triglyceride: greater than or equal to 5OO mg/dL Cholesterol 173 <200 mg/dL [facility] Comment:Desirable Cholestero l: less than 200 mg/dLBorderline High Cholesterol: 200-239 mg/dLHigh Cholesterol: greater than 239 mg/dL LDL Cholesterol Calculated 100(H) <100 mg/dL [facility] Comment:Desirable LDL: less than 100 mg/dLNear Optimal/Above Optimal LDL: 110- 129 mg/dLBorderline High LDL: 130-159 mg/dLHigh LDL: 160-189 mg/dLVery High LDL: greater than or equal to 190 mg/dL HDL Cholesterol 29(L) >40 mg/dL [facility] Comment:Desirable HDL: great er than 40 mg/dL Note: This HDL assay may give artificially low results in patients with liver disease. Blood Venous blood specimen / Unknown 06/30/2023 8:09 AM EDT 06/30/2023 8:09 AM EDT Daisy Keating ANP LAB BLOOD ORDERABLES Final Resul t Performing Organization Address [facility] de Phone Number [facility] [address] [place] [phone] * Hemoglobin A1c (06/21/2023 11:49 AM EDT) Hemoglobin A1c 5.8 <6.0 % [facility] Comment:Hemoglobin A1C Refer ence Range Adults: 4.8 - 6.0 % Non diabetic: < 6.0 % Goal: < 7.0 %Additional Action Suggested: > 8.0 %Note: Hemoglobin A1c results are invalid for patients with abnormal amounts of HbF. Blood transfusions may impact the HbA1c concentration in the patient sample. Estimated Average Glucose 120 mg/dL [facility] Comment:eAG = Estimated ave rage glucose which is %A1C expressed asaverage glucose, using the formula of the [id number] Glucose study (ADAG), Diabetes Care, Vol.31,#8,Sep. 2007 Blood Venous blood specimen / Unknown 06/21/2023 11:49 AM EDT 06/21/2023 1:07 PM EDT Daisy Keating ANP LAB BLOOD ORDERABLES Final Resul t Performing Organization Address [facility] Co de Phone Number [facility] [address] [place] [phone] from Last 3 Months or Most Recently Relevant to Health Maintenance Insurance [id number] Care Teams Dietetics Director Relationship Specialty Start Date End Date Daisy Keating ANP [address] [place] [phone] PCP - General Family Medicine 02/28/20
--- OUTSIDE RECORDS SUMMARY | 2024-05-03 20:11 | XMS_ITS | Encounter Summary ---
Author Organization [employer] Address [address] [facility] 7t [place] [address] Care Team Providers Care Manager Truck Name Role Phone Daisy Keating Primary Care Provider [phone] Reason for Visit * Reason Onset Date Comments July recall 04/24/2024 Encounter Details Date Type Department Care Team (Late st Contact Info) Description 04/24/[address] [facility] MEDICINE [address] [place], [place] [phone] Daisy Keating ANP [address] [place], [place] [phone] July recall Social History Tobacco Use Types Packs/Day Years [...] AM EDT documented as of this encounter Miscellaneous Notes * Telephone Encounter - Vy Maria [place] - 04/24/2024 1:16 PM EST Telephone call to patient to schedule the following recall: Visit type: Physical Appointment notes: Physical de after 06/20/24. Pt stated that he have a new job and a new health insurance pt will call want he get the new insurance info to confirm that we take his new insurance. documented in this encounter Plan of Treatment Not on file documented as of this encounter Visit Diagnoses Not on filedocumented in this encounter Additional Health Concerns Assessment Noted Time PHQ-9 Depression Total Score: 18 024 10:54 AM EDT documented as of this encounter Care Teams Manager Truck Relationship Specialty Start Date End Date Daisy Keating ANP [address] [place] [phone] PCP - General Family Medicine 02/28/20 documented as of this encounter
--- OUTSIDE RECORDS SUMMARY | 2024-05-03 20:11 | XMS_ITS | Encounter Summary ---
Author Organization [employer] Address [address] [place] [address] Care Team Providers Care Software Packager Name Role Phone Daisy Keating JORGE Primary Care Provider [phone] Reason for Visit * Reason Onset Date Comments MAY RECALL 04/11/2024 Spoke to pt who stated he will not be around june,will put on recall for July p.e. Encounter Details Date Type Department Care Team ([facility] st Contact Info) Description 04/11/2024 Telephone [facility] [address] [place] [address] Alexandra Caputo MA JUNE RECALL (Spoke to pt who stated he will not be around june,will put on recall for July p.e.) Social History Tobacco Use Types Packs/Day Years [...] encounter Miscellaneous Notes * Telephone Encounter - Alexandra Caputo MA - 04/11/2024 10:06 AM EST Spoke to pt who stated he will not be around june,will put on recall for July p.e. documented in this encounter Plan of Treatment Not on file documented as of this encounter Visit Diagnoses Not on filedocumented in this encounter Additional Health Concerns Assessment Noted Time PHQ-9 Depression Total Score: 18 024 10:54 AM EDT documented as of this encounter Care Teams Software Packager Relationship Specialty Start Date End Date Daisy Keating ANP [address] [place] [address] PCP - General Family Medicine 02/28/20 documented as of this encounter
[2024-05-03 20:14] LABS: B Type Natriuretic Peptide < 10 pg/mL (<100)
[2024-05-03 20:18] LABS: Troponin-I High Sensitivity < 2.7 ng/L (<3.5-35.0)
[2024-05-03 20:36] VITALS: BP 117/75; PULSE 71; RESP 20; TEMP 36.7; O2SAT 95
[2024-05-03 20:47] LABS: Alanine Aminotransferase 50 U/L (0-40); Albumin Level 4.3 g/dL (3.5-5.0); Alkaline Phosphatase 130 U/L (39-117); Anion Gap 16 (12-20); Aspartate Amino Transferase 48 U/L (5-37); Bilirubin Direct 0.1 mg/dL (0.0-0.5); Bilirubin Total 0.5 mg/dL (0.0-1.0); Blood Urea Nitrogen 20 mg/dL (9-16); Calcium 9.1 mg/dL (8.4-10.2); Carbon Dioxide 19 mmol/L (22-29); Chloride 108 mmol/L (96-108); Creatinine Clr Calc Pharmacy 164.5; Estimated Glomerular Filt Rate > 60; Glucose Random 103 mg/dL (60-115); Lipase 21 U/L (8-78); Sodium 139 mmol/L (135-145); Total Protein 7.9 g/dL (6.5-8.0)
--- NOTE | 2024-05-03 22:01 | ECG_ITS ---
Test Reason : REPEAT Blood Pressure : */* mmHG Vent. Rate : 68 BPM Atrial Rate : 68 BPM P-R Int : 146 ms QRS Dur : 98 ms QT Int : 424 ms P-R-T Axes : 22 7 1 degrees QTcB Int : 450 ms Normal sinus rhythm Nonspecific T wave abnormality Abnormal ECG When compared with ECG of 03-May-2024 18:51, Nonspecific ST and T wave abnormality more prominent Referred By: Codi James Electronically Signed By: NORA DYKES
[2024-05-03 22:14] VITALS: BP 111/71; PULSE 67; RESP 18; TEMP 36.7; O2SAT 97
[2024-05-03 22:20] LABS: Prothrombin Time 11.4 SEC (10.9-12.4)
[2024-05-03 22:23] LABS: D Dimer High Sensitivity < 150 NG/ML
[2024-05-03 23:02] LABS: Troponin-I High Sensitivity < 2.7 ng/L (<3.5-35.0)
[2024-05-03 23:05] VITALS: BP 99/69; PULSE 71; RESP 16; TEMP 36.5; O2SAT 96
[2024-05-03 23:47] VITALS: BP 99/69; PULSE 71; RESP 16; TEMP 36.5; O2SAT 96
== END 2024-05-03 23:47 | disposition home or self-care (01) ==
PROVIDERS: Physician Assistant Medical; Emergency Provider Emergency Medicine; PCP Nurse Practitioner Primary Care
DX: R07.89 Other chest pain (principal); R94.31 Abnormal electrocardiogram [ECG] [EKG]; R11.2 Nausea with vomiting, unspecified; R50.9 Fever, unspecified; M54.50 Low back pain, unspecified; Z79.899 Other long term (current) drug therapy
CPT/HCPCS: 36415; 71046; 80048; 80076; 83690; 83735; 83880; 84484; 85025; 85379; 85610; 93005; 99284

== ENCOUNTER → 2024-05-03 18:46 | Outpatient (BNV) | payer OTHER, SELFPAY | PROVIDERS: Emergency Provider Emergency Medicine; PCP Nurse Practitioner Primary Care; Visit Provider Internal Medicine | DX: R07.9 Chest pain, unspecified (principal); R94.31 Abnormal electrocardiogram [ECG] [EKG] | CPT/HCPCS: 93010 ==

== ENCOUNTER → 2024-05-03 19:32 | Outpatient (BNV) | payer OTHER, SELFPAY | PROVIDERS: PCP Nurse Practitioner Primary Care; Visit Provider Radiology Vascular & Interventional Radiology | DX: R07.9 Chest pain, unspecified (principal) | CPT/HCPCS: 71046 ==